=== PATIENT | male | born 1980 | race Caucasian/White ===

== ENCOUNTER 2016-08-28 14:58 | Emergency (ER) | payer MEDICAID ==
[~2016-08-28] VITALS: Ht 172.7 cm; Wt 114.8 kg
[~2016-08-28 14:58] MED LIST: CELEXA40 MG PO; CIPRO 500MG TA500 MG PO; FLEXERIL10 MG PO; MEDROL 4MG. DOSE4 MG PO; METFORMIN500 MG PO; PRILOSEC40 MG PO; TENORETIC 100 11 TAB PO; ULTRAM 50 MG TA50 MG PO; ZITHROMAX Z-PA250 M1 PO; ZOFRAN ODT4 MG PO
[2016-08-28 15:19] LABS: HEMOGLOBIN 16.8 g/dL (14.1-18.0); LYMPH % 32.2 % (10-50)
--- NOTE | 2016-08-28 15:52 | RADIOLOGY REPORT PS360 ---
CT HEAD W/O CONTRAST COMPARISON: None HISTORY: Dizzy spells for the past 2 months TECHNIQUE: Multiple axial scans obtained from base skull to the vertex and were performed without IV contrast. FINDINGS: Images at the base of skull show the mastoids to be clear. There is an apparent mucous retention cyst posterior wall and floor of the left maxillary sinus measuring approximately 1.4 x 1.8 cm on the axial image. The right mastoid sinuses clear and the ethmoid and sphenoid sinuses are clear, from sinuses are extremely hypoplastic but clear. The internal auditory canals appear normal. The ventricular system is normal. There is no ischemic infarct or bleed and there are no extra-axial fluid collections. The bony calvarium appears intact. IMPRESSION: Probable mucus retention cyst left maxillary sinus otherwise essentially negative noncontrast CT scan of brain
--- NOTE | 2016-08-28 16:07 | Emergency Room Report ---
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 N Clinical Suspician of Infection? N Mental Status: 1 - Regular (Normal Baseline) Sepsis Risk:Low Sepsis Risk Have you (or family members/close friends) recently traveled outside the [place]? N If Yes, where/when: Have you had exposure to infectious disease within the past month? N TB? Other? Specify: Source patient, RN notes reviewed, family, RN/MD Exam Limitations no limitations Comment This is a 35-year-old male patient presenting to the emergency room with blurred vision and dizziness, onset earlier this morning, currently completely resolved. Patient stated he said similar episodes in the past, however he has not sought medical attention for those symptoms. Patient has any head injury, headache, neurological deficits. She also denies any recent travel or recent exposure to sick contacts. ALLERGIES Coded Allergies: MDX - Penicillin (PENICILLIN) ([id number]/THROAT 08/07/12) Home Medications Reported Medications Atenolol/Chlorthalidone (Tenoretic 100 Tablet) 1 TAB PO DAILY CITALOPRAM HYDROBROMIDE (Citalopram HBr) 40 MG PO DAILY Omeprazole (Prilosec 40mg Cap) 40 MG PO DAILY Metformin HCL (Metformin) 500 MG PO BID History Medical History General CAD? No Angina: No MD: No Hypertension? Yes Hyperlipidemia? No CHF? No DVT? No PE? No COPD? No Asthma? No Anemia? No GERD? No Gastric ulcers? No GI Bleed? No Hernia? No Thyroid Problems? No Hypothyroidism? No CVA? No Seizures? No Diabetes? Yes Insulin Dependent: No Insulin Pump: No Home FSBS? Yes Renal Insuffiency? No End Stage Renal Disease? No UTI? No Stones? No BPH? No GB Disease: No Nephritic Syndrome? No Asplenia? No Hepatitis? No Sickle Cell Disease? No Arthritis? No Migraines? No Cataracts? No Glaucoma? No MRSA? No HIV? No TB? No Anxiety? No Depression? No Cancer? No More? No Immunization Hx Ped.Immunizations UTD Yes DT/Tetanus > 10 YRS Surgical Hx Previous Surgery?Y FINGER AMP Social History Smoking Hx Smoker: Never Smoker Tobacco: No Packs/day < 1 Pack Are you/the child exposed to second-hand smoke: No Alcohol Alcohol: No Review of Systems All Other Systems Reviewed and Negative Eyes blurred vision Psychiatric/Neurological weakness, other (dizziness) Physical Exam Vital Signs Vital Signs Date Time Temp Pulse Resp B/P Pulse O2 O2 Flow FiO2 Ox Delivery Rate 08/28 1610 97.8 84 18 141/119 99 08/28 1501 97.8 84 18 141/119 99 General Appearance normal appearance, WD/WN, no apparent distress Eye Exam - bilateral eye normal exam, bilateral eye PERRL, bilateral eye EOMI Neck normal inspection, non-tender, supple, full range of motion Respiratory Status Yes: trachea midline, chest symmetrical, non tender chest. No: respiratory distress. Lung Sounds bilateral: normal breath sounds, lungs clear. 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 No Comment Patient remains in stable medical condition, completely symptomatic. I advised patient to follow-up with Dr. Timo Leon, at [facility], in the morning. Results/Orders Laboratory Tests 08/28/16 1505: Sodium 137, Potassium 3.2 L, Chloride 99, Carbon Dioxide 31, BUN 17, Creatinine 1.1, Estimated Creat Clear 154, Estimated GFR (MDRD) 77, Glucose 121 H, Calcium 9.0, Total Bilirubin 0.3, AST 14 L, ALT 31, Alkaline Phosphatase 61, Total Protein 8.5 H, Albumin 4.3, Globulin 4.2 H, Albumin/Globulin Ratio 1.0 L, WBC 6.3, RBC 5.50, Hgb 16.8, Hct 48.6, MCV 88.3, RDW 14.5, Plt Count 185, MPV 9.2, Gran % 59.3, Gran # 3.8, Lymphocytes % 32.2, Monocytes % 6.1, Eosinophils % 2.1, Basophils % 0.4, Lymphocytes # 2.0, Monocytes # 0.4, Eosinophils # 0.1, Basophils # 0.0, PUBS MCHC 34.6, MCH 30.6 Current Medication Orders Sig/Masoud Start time Last Medication Dose Route Stop Time Status Admin Sodium Chloride 10 ML PRN PRN 08/28 151 DCD IV 08/29 151 Orders Procedure Date/time Status DIET-NOTHING BY MOUTH 08/28 D Active ELECTROCARDIOGRAM REQUEST 08/[address] HEAD REQ 08/28 1512 Complete IV SALINE LOCK 08/28 1512 Active CBC WITH AUTO DIFF 08/28 1512 Complete CHEM 12 PROFILE 08/28 1512 Complete 12 LEAD EKG-BESSON (INITIAL) 08/28 UNK Active XRAY/CT/US XRAY/CT/US CT head CT interpretation by discussed w/radiologist CT Results normal/NAD, no fracture seen Departure Departure Time of Disposition 1604 Disposition DC Home or Self Care(routine) Clinical Impression Primary Impression: Blurred vision Condition STABLE Referrals [facility]: Tomorrow-Call Office Patient Instructions DI for Visual Field Disturbances Additional Instructions This follow-up with Dr. Timo Leon at [facility] at your earliest convenience. Discharge Counseling Counseled pt/family regarding diagnosis, test results, medications/RX, home care, follow up needs Comment This follow-up with Dr. Timo Leon at [facility] at your earliest convenience. ED Critical Care Critical Care No at 1908
--- NOTE | 2016-08-28 16:07 | Emergency Room Report ---
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 N Clinical Suspician of Infection? N Mental Status: 1 - Regular (Normal Baseline) Sepsis Risk:Low Sepsis Risk Have you (or family members/close friends) recently traveled outside the [place]? N If Yes, where/when: Have you had exposure to infectious disease within the past month? N TB? Other? Specify: Source patient, RN notes reviewed, family, RN/MD Exam Limitations no limitations Comment This is a 35-year-old male patient presenting to the emergency room with blurred vision and dizziness, onset earlier this morning, currently completely resolved. Patient stated he said similar episodes in the past, however he has not sought medical attention for those symptoms. Patient has any head injury, headache, neurological deficits. She also denies any recent travel or recent exposure to sick contacts. ALLERGIES Coded Allergies: MDX - Penicillin (PENICILLIN) (M-[id number]/THROAT 08/07/12) Home Medications Reported Medications Atenolol/Chlorthalidone (Tenoretic 100 Tablet) 1 TAB PO DAILY CITALOPRAM HYDROBROMIDE (Citalopram HBr) 40 MG PO DAILY Omeprazole (Prilosec 40mg Cap) 40 MG PO DAILY Metformin HCL (Metformin) 500 MG PO BID History Medical History General CAD? No Angina: No ID: No Hypertension? Yes Hyperlipidemia? No CHF? No DVT? No PE? No COPD? No Asthma? No Anemia? No GERD? No Gastric ulcers? No GI Bleed? No Hernia? No Thyroid Problems? No Hypothyroidism? No CVA? No Seizures? No Diabetes? Yes Insulin Dependent: No Insulin Pump: No Home FSBS? Yes Renal Insuffiency? No End Stage Renal Disease? No UTI? No Stones? No BPH? No GB Disease: No Nephritic Syndrome? No Asplenia? No Hepatitis? No Sickle Cell Disease? No Arthritis? No Migraines? No Cataracts? No Glaucoma? No MRSA? No HIV? No TB? No Anxiety? No Depression? No Cancer? No More? No Immunization Hx Ped.Immunizations UTD Yes DT/Tetanus > 10 YRS Surgical Hx Previous Surgery?Y FINGER AMP Social History Smoking Hx Smoker: Never Smoker Tobacco: No Packs/day < 1 Pack Are you/the child exposed to second-hand smoke: No Alcohol Alcohol: No Review of Systems All Other Systems Reviewed and Negative Eyes blurred vision Psychiatric/Neurological weakness, other (dizziness) Physical Exam Vital Signs Vital Signs Date Time Temp Pulse Resp B/P Pulse O2 O2 Flow FiO2 Ox Delivery Rate 08/28 1610 97.8 84 18 141/119 99 08/28 1501 97.8 84 18 141/119 99 General Appearance normal appearance, WD/WN, no apparent distress Eye Exam - bilateral eye normal exam, bilateral eye PERRL, bilateral eye EOMI Neck normal inspection, non-tender, supple, full range of motion Respiratory Status Yes: trachea midline, chest symmetrical, non tender chest. No: respiratory distress. Lung Sounds bilateral: normal breath sounds, lungs clear. 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 No Comment Patient remains in stable medical condition, completely symptomatic. I advised patient to follow-up with Dr. Timo Leon, at [facility], in the morning. Results/Orders Laboratory Tests 08/28/16 1505: Sodium 137, Potassium 3.2 L, Chloride 99, Carbon Dioxide 31, BUN 17, Creatinine 1.1, Estimated Creat Clear 154, Estimated GFR (MDRD) 77, Glucose 121 H, Calcium 9.0, Total Bilirubin 0.3, AST 14 L, ALT 31, Alkaline Phosphatase 61, Total Protein 8.5 H, Albumin 4.3, Globulin 4.2 H, Albumin/Globulin Ratio 1.0 L, WBC 6.3, RBC 5.50, Hgb 16.8, Hct 48.6, MCV 88.3, RDW 14.5, Plt Count 185, MPV 9.2, Gran % 59.3, Gran # 3.8, Lymphocytes % 32.2, Monocytes % 6.1, Eosinophils % 2.1, Basophils % 0.4, Lymphocytes # 2.0, Monocytes # 0.4, Eosinophils # 0.1, Basophils # 0.0, PUBS MCHC 34.6, MCH 30.6 Current Medication Orders Sig/Masoud Start time Last Medication Dose Route Stop Time Status Admin Sodium Chloride 10 ML PRN PRN 08/28 151 DCD IV 08/29 151 Orders Procedure Date/time Status DIET-NOTHING BY MOUTH 08/28 D Active ELECTROCARDIOGRAM REQUEST 08/[address] HEAD REQ 08/28 1512 Complete IV SALINE LOCK 08/28 1512 Active CBC WITH AUTO DIFF 08/28 1512 Complete CHEM 12 PROFILE 08/28 1512 Complete 12 LEAD EKG-BESSON (INITIAL) 08/28 UNK Active XRAY/CT/US XRAY/CT/US CT head CT interpretation by discussed w/radiologist CT Results normal/NAD, no fracture seen Departure Departure Time of Disposition 1604 Disposition DC Home or Self Care(routine) Clinical Impression Primary Impression: Blurred vision Condition STABLE Referrals [facility]: Tomorrow-Call Office Patient Instructions DI for Visual Field Disturbances Additional Instructions This follow-up with Dr. Timo Leon at [facility] at your earliest convenience. Discharge Counseling Counseled pt/family regarding diagnosis, test results, medications/RX, home care, follow up needs Comment This follow-up with Dr. Timo Leon at [facility] at your earliest convenience. ED Critical Care Critical Care No at 1908
[2016-08-28 16:10] VITALS: BP 141/119
== END 2016-08-28 16:11 | disposition home or self-care (01) ==
LOC: ER 14:58
PROVIDERS: Emergency Medicine
DX: H53.8 Other visual disturbances (principal); I10 Essential (primary) hypertension; E11.9 Type 2 diabetes mellitus without complications